=== PATIENT | female | born 1980 | race Caucasian/White ===

== ENCOUNTER 2017-01-06 19:48 | Emergency (ER) | payer OTHER ==
[2017-01-06 19:54] VITALS: BP 110/73; RESP 20; TEMP 98.8
[2017-01-06] MEDS ORDERED: Promethazine/Cod 6.25mg-10mg/5ml Syr UD PO STA (19:59)
[2017-01-06] MEDS ORDERED: Albuterol 0.083% Inhal Sol (2.5 mg/3 mL) UD IH STA (20:00)
[2017-01-06] MEDS ORDERED: Promethazine/Cod 6.25mg-10mg/5ml Syr UD ONE (20:09)
[2017-01-06] MEDS ORDERED: Albuterol 0.083% Inhal Sol (2.5 mg/3 mL) UD ONE (20:11)
--- NOTE | 2017-01-06 20:34 | C.PDOC ---
History Of Present Illness 36 yo female come in for evaluation of URI sx for past 4 days associated with nasal congestion, sore throat and dry cough that gradually worse over time. Pt reports, cough is dry, spasmodic, was unable to sleep last night. Otherwise, pt denies high fever, chills, drooling, dysphagia, dyspnea, CP, SOB, wheezing, sputum production, abd. pain, N/V/D, back pain, UTI sx. Ambulate to ED, not in any apparent distress, Occasional dry cough noted. Time Seen by Provider: 01/06/17 19:57 Chief Complaint (Nursing): Cough, Cold, Congestion History Per: Patient Onset/Duration Of Symptoms: Gradual Current Symptoms Are (Timing): Worse Past Medical History Reviewed: Historical Data, Nursing Documentation, Vital Signs Vital Signs: Last Vital Signs Temp 98.8 F 01/06/17 19:52 Pulse 75 01/06/17 20:56 Resp 20 01/06/17 20:56 BP 110/73 01/06/17 19:52 Pulse Ox 100 01/06/17 20:56 - Medical History PMH: Gastritis Denies: Asthma, CAD, Cardia Arrhythmia Family History: States: No Known Family Hx - Social History Hx Tobacco Use: No Hx Alcohol Use: No Hx Substance Use: No - Immunization History Hx Tetanus Toxoid Vaccination: No Hx Influenza Vaccination: No Hx Pneumococcal Vaccination: No Review Of Systems Except As Marked, All Systems Reviewed And Found Negative. Constitutional: Negative for: Fever, Chills ENT: Positive for: Nose Congestion, Throat Pain, Throat Swelling. Negative for : Ear Discharge Cardiovascular: Negative for: Chest Pain, Palpitations, Edema, Light Headedness Respiratory: Positive for: Cough. Negative for: Shortness of Breath, Wheezing Gastrointestinal: Negative for: Nausea, Vomiting, Abdominal Pain Genitourinary: Negative for: Dysuria Musculoskeletal: Negative for: Neck Pain, Back Pain Skin: Negative for: Rash Neurological: Negative for: Weakness, Numbness, Altered Mental Status, Headache , Dizziness Physical Exam - Physical Exam Appears: Well, Non-toxic, Other (occasioanl dry cough noted.) Skin: Normal Color, Warm, Dry, No Rash Eye(s): bilateral: PERRL Ear(s): Bilateral: Normal Nose: Discharge (B/L nasal congestion with scant clear rhinorhea.) Oral Mucosa: Moist, No Drooling Throat: Normal, No Erythema, No Exudate, No Drooling Neck: Supple Cardiovascular: Rhythm Regular Respiratory: No Decreased Breath Sounds, No Accessory Muscle Use, No Rales, No Rhonchi, No Stridor, No Wheezing Gastrointestinal/Abdominal: Soft, No Tenderness, No Distention, No Guarding Back: No CVA Tenderness Extremity: Normal ROM, No Pedal Edema Neurological/Psych: Oriented x3, Normal Speech ED Course And Treatment O2 Sat by Pulse Oximetry: 96 Pulse Ox Interpretation: Normal Progress Note: On re-evaluation, pt is afebrile, hemodynamicaly stable. NOn- toxic. PulseOx 96% RA. ENT: exam c/w mild pharyngitis. neck: (-) meningeal sign. Lungs: CTA B/L, BS equal B/L. ABd: benign. Neurologicaly intact. Pt has clinical findings c/w bronchitis. Pt advised and ref. to F/U with PMD in 2- 3 days for re-evaluation. Return to ED if any worsening or new changes. Disposition Counseled Patient/Family Regarding: Diagnosis, Need For Followup, Rx Given - Disposition Referrals: [facility] [Outside] Disposition: HOME/ ROUTINE Disposition Time: 20:38 Condition: STABLE Additional Instructions: Encourage fluids Take medication as prescribed Follow up with PMD in 2-3 days for re-evaluation. Return to ED if any worsening or new changes. Prescriptions: Azithromycin [Zithromax] 250 mg PO DAILY #4 tab Benzonatate [Tessalon Perle] 100 mg PO TID #14 capsule Prednisone [Deltasone] 20 mg PO DAILY #3 tablet Instructions: Acute Bronchitis (ED) Forms: Work Excuse Print Language: SINGAPOREAN - Clinical Impression Clinical Impression: Bronchitis
[2017-01-06 20:56] VITALS: PULSE 75
[2017-01-06 21:34] VITALS: O2SAT 96
== END 2017-01-06 21:22 | disposition home or self-care (01) ==
LOC: C.ER 19:48
DX: J40 Bronchitis, not specified as acute or chronic (principal)

== ENCOUNTER 2018-08-29 18:23 | Emergency (ER) | payer OTHER ==
[2018-08-29 19:13] VITALS: TEMP 98
--- NOTE | 2018-08-29 20:57 | C.PDOC ---
History Of Present Illness 38 year old female presents to the ED for evaluation of right foot pain and swelling which began around one month ago. Patient states she was at work when someone accidentally dropped a pallet of heavy boxes onto her right foot. She experienced pain immediately. Patient was evaluated by workers compensation doctors at her workplace, underwent x-ray and was offered physical therapy. Patient is awaiting approval for MRI, so has not undergone the test yet. Patient has been attending physical therapy sessions which have been making her symptoms worse. She reports to the ED because her pain has persisted and has now started radiating up her leg. Patient has been walking using crutches for support. She denies any recent trauma/injuries or extremity numbness/weakness. Chief Complaint (Nursing): Lower Extremity Problem/Injury History Per: Patient History/Exam Limitations: no limitations Onset/Duration Of Symptoms: Persistent, Other (one month ) Current Symptoms Are (Timing): Still Present Additional History Per: Patient Past Medical History Reviewed: Historical Data, Nursing Documentation, Vital Signs Vital Signs: Last Vital Signs Temp 98 F 08/29/18 19:10 Pulse 91 H 08/29/18 19:10 Resp 20 08/29/18 19:10 BP 111/74 08/29/18 19:10 Pulse Ox 100 08/29/18 19:10 - Medical History PMH: Gastritis Denies: Asthma, CAD, Cardia Arrhythmia Surgical History: No Surg Hx Family History: States: Unknown Family Hx - Social History Hx Tobacco Use: No Hx Alcohol Use: No Hx Substance Use: No - Immunization History Hx Tetanus Toxoid Vaccination: No Hx Influenza Vaccination: No Hx Pneumococcal Vaccination: No Review Of Systems Constitutional: Negative for: Fever, Chills, Weakness Cardiovascular: Negative for: Chest Pain Respiratory: Negative for: Cough, Shortness of Breath Gastrointestinal: Negative for: Nausea, Vomiting, Diarrhea Musculoskeletal: Positive for: Leg Pain (right), Foot Pain (right, with swelling ). Negative for: Back Pain Skin: Negative for: Rash Neurological: Negative for: Weakness, Numbness, Dizziness Physical Exam - Physical Exam Appears: Well, Non-toxic, No Acute Distress Skin: Normal Color, Warm, No Rash, No Other (skin changes to right lower extremity ) Head: Atraumatic, Normacephalic Eye(s): bilateral: Normal Inspection Oral Mucosa: Moist Neck: Normal ROM, Supple Chest: Symmetrical Respiratory: No Accessory Muscle Use, Other (normal inspiratory effort ) Back: Other (ambulatory with steady upright gait) Extremity: Capillary Refill (less than 2 seconds ), No Deformity, Other (edema to right foot with tenderness throughout right foot/ankle and right lower leg ) Pulses: Left Dorsalis Pedis: Normal, Right Dorsalis Pedis: Normal Neurological/Psych: Oriented x3, Normal Cranial Nerves (grossly intact ) ED Course And Treatment O2 Sat by Pulse Oximetry: 100 (on RA) Pulse Ox Interpretation: Normal Medical Decision Making Medical Decision Making: Progress: Will give pain medication and wrap the foot. Since patient has had the swelling for one month since her injury, there is low suspicion for DVT or infection to the area. Disposition - Disposition Disposition: HOME/ ROUTINE Disposition Time: 20:54 Condition: IMPROVED Prescriptions: RX: traMADol [Ultram] 50 mg PO TID PRN #21 tab PRN Reason: Pain, Severe (8-10) Instructions: Muscle and Bone Pain (DC) Forms: Gen Discharge Inst Thai, [employer] (Thai) Print Language: [place]ISH - Clinical Impression Clinical Impression: Foot pain, right - PA / BILINGUAL RECRUITER / Resident Statement MD/DO has reviewed & agrees with the documentation as recorded. - Scribe Statement The provider has reviewed the documentation as recorded by the Scribe (Merle Arreola) All medical record entries made by the Scribe were at my direction and personally dictated by me. I have reviewed the chart and agree that the record accurately reflects my personal performance of the history, physical exam, medical decision making, and the department course for this patient. I have also personally directed, reviewed, and agree with the discharge instructions and disposition.
[2018-08-29 21:03] VITALS: BP 103/68; PULSE 72; RESP 16
[2018-08-29 21:42] VITALS: O2SAT 100
== END 2018-08-29 21:02 | disposition home or self-care (01) ==
LOC: C.ER 18:23
DX: M79.671 Pain in right foot (principal)